=== PATIENT | male | born 1955 | race Caucasian/White ===

== ENCOUNTER 2023-05-26 05:59 | Inpatient (IN) | payer MEDICARE ==
[~2023-05-26] VITALS: Ht 170.2 cm; Wt 91.6 kg
[2023-05-26] VITALS (8 sets, daily range): BP systolic 101–147; BP diastolic 64–77; PULSE 62–83; RESP 16–20; TEMP 97.4–98.5; O2SAT 93–99
[~2023-05-26 05:59] MED LIST: ATENOLOL25 MG PO; CEFDINIR300 MG PO; CIPRO500 MG PO; FINASTERIDE5 MG PO; FOLIC ACID0.4 MG PO; HYDROCHLOROTHIA25 MG PO; RAPAFLO8 MG PO; SIMVASTATIN40 MG PO; TYLENOL325 MG PO; VESICARE5 MG PO; VITAMIN B-121000 MCG PO; VITAMIN B6100 MG/2.5 PO; VITAMIN D350 MC1 PO; VITAMIN E400 UNI1 PO
[2023-05-26] MEDS: GENTAMICIN 80MG/NS 100 ML 200 ML IV ONE (06:36)
[2023-05-26] MEDS: SODIUM CHLORIDE 0.9% 1000ML 1,000 ML ONE (06:38)
[2023-05-26] MEDS ORDERED: ACETAMINOPHEN 1000 MG/100 ML 100 ML IV ONE (06:38)
[2023-05-26] MEDS: PIPERACILLIN/TAZOBACTAM 3.375 GM VIAL ONE (06:38)
[2023-05-26] MEDS ORDERED: IOPAMIDOL 610MG/1ML 300 MG/ML VIAL IV ONE (08:07)
[2023-05-26] MEDS ORDERED: DIPHENHYDRAMINE HCL 25 MG CAP PO PRN (09:00)
[2023-05-26] MEDS ORDERED: ONDANSETRON HCL INJ 2MG/ML 2ML 2 MG/ML VIAL IV PRN (09:00)
[2023-05-26] MEDS: HYDROMORPHONE 1MG/1ML INJ ONE ×2 (10:47→11:18)
[2023-05-26] MEDS: PHENAZOPYRIDINE HCL 100 MG TAB ONE (11:14)
[2023-05-26 11:24] LABS: BASOPHILS % 0.4 % (0.0-1.0); EOSINOPHILS % 0.5 % (0.0-6.0); HEMATOCRIT 37.4 % (38.2-49.6); HEMOGLOBIN 12.5 g/dL (14.0-18.0); LYMPHOCYTES # (AUTO) 0.8 (1.0-3.2); LYMPHOCYTES % 9.5 % (18.0-39.1); MEAN CORPUSCULAR HEMOGLOBIN 28.9 pg (28-32); MEAN CORPUSCULAR HGB CONC 33.4 g/dL (31-35); MEAN CORPUSCULAR VOLUME 86.4 fL (81-99); MONOCYTES # (AUTO) 0.3 (0.2-0.8); MONOCYTES % 3.5 % (4.4-11.3); NEUTROPHILS # (AUTO) 6.8 (2.1-6.9); NEUTROPHILS % 85.5 % (38.7-80.0); PLATELET COUNT 235 x10e3/uL (140-360); RED BLOOD COUNT 4.33 x10e6/uL (4.3-5.7); RED CELL DISTRIBUTION WIDTH 13.7 % (11.7-14.4); WHITE BLOOD COUNT 7.93 x10e3/uL (4.8-10.8)
[2023-05-26 11:42] LABS: ANION GAP 13.2 mmol/L (8-16); CALCIUM 8.9 mg/dL (8.4-10.2); CREATININE, SERUM 0.94 mg/dL (0.72-1.25); POTASSIUM 4.2 mmol/L (3.5-5.1)
[2023-05-26] MEDS ORDERED: DEXAMETHASONE SOD PHOS INJ 4 MG/ML SDV ONE (11:47)
[2023-05-26] MEDS ORDERED: LIDOCAINE HCL 2% LOCAL INJ 5 ML SDV VIAL INJ ONE (11:47)
[2023-05-26] MEDS ORDERED: EPHEDRINE SULFATE INJ 50 MG/ML VIAL ONE (11:47)
[2023-05-26] MEDS ORDERED: SEVOFLURANE INHAL SOLN 250 ML PEN BTL ONE (11:47)
[2023-05-26] MEDS ORDERED: PROPOFOL IV EMULSION 10 MG/ML 20 ML VIAL ONE (11:47)
[2023-05-26] MEDS ORDERED: ONDANSETRON HCL INJ 2MG/ML 2ML 2 MG/ML VIAL ONE (11:47)
[2023-05-26] MEDS ORDERED: FENTANYL CITRATE/PF 100MCG/2 ML INJ ONE (11:56)
[2023-05-26] MEDS: ACETAMINOPHEN/CODEINE 300MG - 30MG TAB PO PRN (12:08)
[2023-05-26] MEDS: SODIUM CHLORIDE 0.9% 1000ML 1,000 ML IV SCH (12:08)
[2023-05-26] MEDS ORDERED: ACETAMINOPHEN 1000 MG/100 ML IV PRN (14:00)
[2023-05-26] MEDS: PHENAZOPYRIDINE HCL 100 MG TAB PO PRN (19:48)
[2023-05-27] VITALS (7 sets, daily range): BP systolic 115–121; BP diastolic 64–73; PULSE 72–85; RESP 16–19; TEMP 97.4–98.6; O2SAT 96–98
[2023-05-27 05:16] LABS: BASOPHILS % 0.2 % (0.0-1.0); EOSINOPHILS % 0.2 % (0.0-6.0); HEMOGLOBIN 11.1 g/dL (14.0-18.0); LYMPHOCYTES # (AUTO) 1.1 (1.0-3.2); LYMPHOCYTES % 9.3 % (18.0-39.1); MEAN CORPUSCULAR HGB CONC 31.7 g/dL (31-35); MEAN CORPUSCULAR VOLUME 88.2 fL (81-99); MONOCYTES # (AUTO) 1.2 (0.2-0.8); MONOCYTES % 9.5 % (4.4-11.3); NEUTROPHILS # (AUTO) 9.8 (2.1-6.9); NEUTROPHILS % 80.1 % (38.7-80.0); PLATELET COUNT 242 x10e3/uL (140-360); RED BLOOD COUNT 3.97 x10e6/uL (4.3-5.7); RED CELL DISTRIBUTION WIDTH 13.9 % (11.7-14.4); WHITE BLOOD COUNT 12.17 x10e3/uL (4.8-10.8)
[2023-05-27 05:39] LABS: ANION GAP 13.3 mmol/L (8-16); CALCIUM 8.4 mg/dL (8.4-10.2); CREATININE, SERUM 0.89 mg/dL (0.72-1.25); POTASSIUM 4.3 mmol/L (3.5-5.1)
[2023-05-27] MEDS ORDERED: ACETAMINOPHEN 325 MG TAB PO PRN (08:30)
[2023-05-27] MEDS ORDERED: ONDANSETRON HCL INJ 2MG/ML 2ML 2 MG/ML VIAL IV PRN (08:30)
[2023-05-27] MEDS: NON-FORMULARY MEDICATION (Silodosin (Rapaflo) 8 MG) PO SCH (09:00)
[2023-05-27] MEDS: SOLIFENACIN SUCCINATE 5 MG TAB PO SCH (09:55)
[2023-05-27] MEDS: FINASTERIDE 5 MG TAB PO SCH (09:55)
[2023-05-27] MEDS: SIMVASTATIN 40 MG TAB PO SCH (21:19)
[2023-05-27] MEDS: ATENOLOL 50 MG TAB PO SCH (21:21)
[2023-05-28] VITALS (9 sets, daily range): BP systolic 110–148; BP diastolic 61–76; PULSE 67–83; RESP 17–19; TEMP 98–98.6; O2SAT 94–99
[2023-05-28 06:11] LABS: BASOPHILS % 0.2 % (0.0-1.0); EOSINOPHILS # (AUTO) 0.1 (0.0-0.4); EOSINOPHILS % 1.1 % (0.0-6.0); HEMATOCRIT 34.3 % (38.2-49.6); HEMOGLOBIN 10.8 g/dL (14.0-18.0); LYMPHOCYTES # (AUTO) 0.9 (1.0-3.2); LYMPHOCYTES % 11.2 % (18.0-39.1); MEAN CORPUSCULAR HEMOGLOBIN 27.8 pg (28-32); MEAN CORPUSCULAR HGB CONC 31.5 g/dL (31-35); MEAN CORPUSCULAR VOLUME 88.4 fL (81-99); MONOCYTES % 11.4 % (4.4-11.3); NEUTROPHILS # (AUTO) 6.3 (2.1-6.9); NEUTROPHILS % 75.7 % (38.7-80.0); PLATELET COUNT 225 x10e3/uL (140-360); RED BLOOD COUNT 3.88 x10e6/uL (4.3-5.7); RED CELL DISTRIBUTION WIDTH 14.2 % (11.7-14.4); WHITE BLOOD COUNT 8.33 x10e3/uL (4.8-10.8)
[2023-05-28 06:41] LABS: CALCIUM 8.5 mg/dL (8.4-10.2); CREATININE, SERUM 0.85 mg/dL (0.72-1.25)
[2023-05-28] MEDS: Morphine 2mg Syringe 2 MG/ML SYR IV ONE (17:30)
[2023-05-29] VITALS: BP 114/64; PULSE 65; RESP 18; TEMP 98.4; O2SAT 98
[2023-05-29 04:00] VITALS: BP 121/62; PULSE 72; RESP 18; TEMP 97.6; O2SAT 98
[2023-05-29 06:31] LABS: BASOPHILS % 0.2 % (0.0-1.0); EOSINOPHILS # (AUTO) 0.1 (0.0-0.4); EOSINOPHILS % 1.3 % (0.0-6.0); HEMATOCRIT 33.3 % (38.2-49.6); HEMOGLOBIN 10.8 g/dL (14.0-18.0); LYMPHOCYTES # (AUTO) 0.9 (1.0-3.2); LYMPHOCYTES % 10.6 % (18.0-39.1); MEAN CORPUSCULAR HEMOGLOBIN 28.3 pg (28-32); MEAN CORPUSCULAR HGB CONC 32.4 g/dL (31-35); MEAN CORPUSCULAR VOLUME 87.2 fL (81-99); MONOCYTES % 11.1 % (4.4-11.3); NEUTROPHILS # (AUTO) 6.7 (2.1-6.9); NEUTROPHILS % 76.1 % (38.7-80.0); PLATELET COUNT 218 x10e3/uL (140-360); RED BLOOD COUNT 3.82 x10e6/uL (4.3-5.7); RED CELL DISTRIBUTION WIDTH 13.9 % (11.7-14.4); WHITE BLOOD COUNT 8.75 x10e3/uL (4.8-10.8)
[2023-05-29 06:51] LABS: ANION GAP 8.9 mmol/L (8-16); CREATININE, SERUM 0.8 mg/dL (0.72-1.25); POTASSIUM 3.9 mmol/L (3.5-5.1)
[2023-05-29 08:11] VITALS: PULSE 65; RESP 18; O2SAT 94
[2023-05-29 08:16] VITALS: BP 117/77; PULSE 83; RESP 20; TEMP 98.8; O2SAT 95
[2023-05-29] MEDS ORDERED: ONDANSETRON HCL 4 MG ORAL DISINTEGRATING TAB PO PRN (10:45)
[2023-06-06] MEDS ORDERED: CEFUROXIME250 MG PO (11:22)
== END 2023-05-29 11:45 | disposition home or self-care (01) | DRG 713 ==
LOC: OR 05:59 → PACU V 08:54 → MED/SURG 11:42
PROVIDERS: ADMIT Urology; ATTEND Internal Medicine
PROC: 0T7D8ZZ Dilation of Urethra, Via Natural or Artificial Opening Endoscopic (ICD-10-PCS; 2023-05-26)
PROC: BT141ZZ Fluoroscopy of Kidneys, Ureters and Bladder using Low Osmolar Contrast (ICD-10-PCS; 2023-05-26)
PROC: BT101ZZ Fluoroscopy of Bladder using Low Osmolar Contrast (ICD-10-PCS; 2023-05-26)
PROC: 0V508ZZ Destruction of Prostate, Via Natural or Artificial Opening Endoscopic (ICD-10-PCS; principal; 2023-05-26 08:53)
PROC: 0VB03ZX Excision of Prostate, Percutaneous Approach, Diagnostic (ICD-10-PCS; 2023-05-26 08:53)
DX: N40.1 Benign prostatic hyperplasia with lower urinary tract symptoms (principal); D62 Acute posthemorrhagic anemia; N13.8 Other obstructive and reflux uropathy; R33.8 Other retention of urine; R35.1 Nocturia; R31.0 Gross hematuria; R39.12 Poor urinary stream; N35.819 Other urethral stricture, male, unspecified site; N32.89 Other specified disorders of bladder; R39.14 Feeling of incomplete bladder emptying; I10 Essential (primary) hypertension; E66.9 Obesity, unspecified; Z68.31 Body mass index [BMI] 31.0-31.9, adult; I65.23 Occlusion and stenosis of bilateral carotid arteries; G40.A09 Absence epileptic syndrome, not intractable, without status epilepticus; E78.5 Hyperlipidemia, unspecified; Z79.82 Long term (current) use of aspirin; Z79.899 Other long term (current) drug therapy; Z87.891 Personal history of nicotine dependence
CPT/HCPCS: 36415; 74420; 76872; 76998; 80048; 83735; 85025; 88305; 88312; 93005; 94799; J1100; J1170; J1580; J2001; J2270; J2405; J2543; J7030